=== PATIENT | female | born 1955 | race Two or more races ===

== ENCOUNTER 2019-08-23 10:43 | Emergency (ER) | payer OTHER ==
[~2019-08-23] VITALS: Ht 152.4 cm; Wt 63.5 kg
[2019-08-23] MEDS ORDERED: VASOTEC20 M1 PO (11:08)
[2019-08-23] MEDS ORDERED: CLARITIN10 MG PO (13:53)
[2019-08-23] MEDS ORDERED: ANTI-ITCH28 GM TOP (13:54)
== END 2019-08-23 14:18 | disposition home or self-care (01) ==
LOC: ER 10:43
DX: R21 Rash and other nonspecific skin eruption (principal)